=== PATIENT | male | born 1960 | race Caucasian/White ===

== ENCOUNTER → 2018-03-06 | Outpatient (CLI) | payer OTHER, MEDICAID ==
[~2018-03-06] VITALS: Ht 170.2 cm; Wt 108.9 kg
[~2018-03-06] MED LIST: ALLERGY RELIEF10 M5 PO; ASPIR 8181 MG PO; BENAZEPRIL HCL40 MG PO; BREO ELLIPTA 11 EACH INH; DOXYCYCLINE 10100 MG PO; FLEXERIL PO; LIPITOR40 MG PO; NORVASC10 MG PO; OMEGA 3 FISH O1 EACH PO; OMEPRAZOLE20 M2 PO; PREDNISONE 10 M10 MG PO; REQUIP 0.25 M0.25 M1 PO; SPIRONOLACTONE25 M1 PO; TOPROL XL25 MG PO; VENTOLIN HFA 1818 GM INH
[2018-03-06 09:28] VITALS: BP 127/78
[2018-03-06 09:43] LABS: HEMATOCRIT 43.2 % (42.0-52.0); HEMOGLOBIN 14.8 gm/dL (14.0-18.0); MCH 30.3 pg (26.0-34.0); MCHC 34.3 g/dL (28.0-37.0); MCV 88.3 fL (80.0-100.0); MPV 7.6 fl. (7.2-11.1); RBC 4.89 mil/uL (4.50-6.00); RDW-CV 14.9 % (10.5-14.5); WBC 10.3 thou/uL (4.0-11.0)
[2018-03-06 10:02] LABS: APTT 41.9 Seconds (25.0-31.3); INR 1.2; PROTIME 11.8 Seconds (9.20-11.50)
[2018-03-06 10:15] LABS: ANION GAP 3 mmol/L (7-16); BUN 26 mg/dL (7-18); CALCIUM 8.6 mg/dL (8.5-10.1); CHLORIDE 103 mmol/L (98-107); CO2 32 mmol/L (21-32); CREATININE 1.1 mg/dL (0.6-1.3); GLUCOSE 120 mg/dL (70-99); POTASSIUM 4.1 mmol/L (3.5-5.1); SODIUM 138 mmol/L (136-145)
[2018-03-06 10:20] LABS: ALBUMIN 3.9 g/dL (3.4-5.0); ALKALINE PHOSPHATASE 70 U/L (46-116); SGOT 21 U/L (15-37); SGPT 40 U/L (30-65); TOTAL BILIRUBIN 1.4 mg/dL (<0.1-1.0); TOTAL PROTEIN 7.2 g/dL (6.4-8.2)
[2018-03-06 10:22] LABS: SERUM ASSESSMENT Clear
[2018-03-06 10:32] LABS: CHOLESTEROL 97 mg/dL (<200); HDL CHOLESTEROL 26 mg/dL (>40); LDL CHOLESTEROL 48 mg/dL (<100); TC:HDL 3.7 Ratio (Not establshd); TRIGLYCERIDE 115 mg/dL (<150); VLDL 23 mg/dL (<40)
--- NOTE | 2018-03-06 17:29 | EKG ---
[place] [address] ELECTROCARDIOGRAM REPORT Name: JOHANA PETERSEN Room: [facility]#: [id number] Admission: 03/06/18 Attend Phys: Edgar Guerra MD Discharge: Date of : 62 Report #: [id number] THIS REPORT FOR: //name// [facility] Test Date: 2018-03-06 Test Time: 09:39:12 Pat Name: JOHANA PETERSEN Department: Room: Gender: M Senior Computer Specialist: : 1960 Requested By: Edgar Guerra Order Number: [id number] Reading : Red Lino Measurements Intervals [place] Rate: 81 P: 66 WA: 171 QRS: 1 QRSD: 110 T: 63 QT: 420 QTc: 488 Interpretive Statements Sinus rhythm Low voltage, extremity leads Borderline prolonged QT interval No previous ECG available for comparison Electronically Signed On 03-06-2018 17:29:38 CDT by Red Lino [email or web address] <ELECTRONICALLY SIGNED> By: Red Lino MD, [facility] 03/06/18 1729 0939 09 Red Lino MD, FACC /EPI
--- NOTE | 2018-03-07 08:48 | H ---
[place] [address] HISTORY AND PHYSICAL Name: JOHANA PETERSEN Room: [facility]#: [id number] Admission: 03/06/18 Attend Phys: Edgar Guerra MD Discharge: Date of : 62 Report #: [id number] THIS REPORT FOR: //name// CC: Dr. Bryson Guerra INDICATION: Cardiomyopathy, abnormal stress test. HISTORY OF PRESENT ILLNESS: The patient is a very pleasant 57-year-old with a history of cardiomyopathy. Over the past several weeks, he has been having some exertional chest discomfort and dyspnea. Stress testing shows severe LV systolic dysfunction with global hypokinesis. The patient is referred for further evaluation with left heart catheterization and coronary angiography to evaluate for the possibility of underlying coronary artery disease. He does have a calcium score of approximately 460. Cardiac risk factors include hypertension, dyslipidemia, and tobacco use. He is not having any prolonged symptoms. He is without other cardiac complaint. FAMILY HISTORY: The patient's mother had hypertension and heart failure and he believes she of sudden cardiac . He has a sister who at age 58 with sudden cardiac . PAST MEDICAL HISTORY: 1. Cardiomyopathy. 2. COPD. 3. Chronic systolic heart failure. 4. Hypertension. 5. Hyperlipidemia. 6. Chronic tobacco use. 7. Type 2 diabetes mellitus. REVIEW OF SYSTEMS: As per HPI, otherwise unremarkable. PHYSICAL EXAMINATION: VITAL SIGNS: Stable. Blood pressure was 128/62, heart rate 72 and regular. GENERAL: This is a pleasant gentleman who is in no distress. HEENT: The patient is wearing glasses. Extraocular muscles intact. Mucous membranes are moist. NECK: Shows no jugular venous distention. There are no carotid bruits. CHEST: Reveals clear lung diehl without wheezes or rales. CARDIAC: Reveals a regular rhythm without gallop or murmur. ABDOMEN: Reveals normal bowel sounds. The abdomen is soft, nontender. EXTREMITIES: Shows no edema. Peripheral pulses are 2+ and easily palpable. SKIN: [place] [address] HISTORY AND PHYSICAL Name: JOHANA PETERSEN Room: [facility]#: [id number] Admission: 03/06/18 Attend Phys: Edgar Guerra MD Discharge: Date of : 62 Report #: [id number] LABORATORY DATA: A 12-lead EKG shows sinus rhythm without acute ST or T-wave abnormality. IMPRESSION AND RECOMMENDATIONS: 1. Cardiomyopathy. Stress testing suggests severe LV systolic dysfunction. The patient is having symptoms to suggest possible angina. Proceeding with a coronary catheterization for further evaluation. Continue current beta seema and RAINA inhibitor. 2. Hypertension, adequately controlled on current cardiac regimen. 3. Type 2 diabetes mellitus per primary physician. 4. Hyperlipidemia. Continue current statin agent. 5. Chronic tobacco use, smoking cessation advised. <ELECTRONICALLY SIGNED> By: Edgar Guerra MD, FACC 03/07/18 0848 1352 1419Michael Erik Guerra MD, FAC /nt
--- NOTE | 2018-03-07 16:12 | NUR ---
Spoke with the patient by phone, states his right wrist cath puncture site is healing well. Knows not to take his metformin for 48 hours. Is out of his lasix and will not have any money until tomorrow, will fill it tomorrow. No new C/O. No questions or concerns at this time.
--- NOTE | 2018-03-07 18:07 | CARD ---
[address] [address] CARDIAC CATH REPORT Name: JOHANA PETERSEN [id number] Admission: 03/06/18 Attend Phys: Edgar Guerra MD Discharge: Date of : 62 Report #: [id number] THIS REPORT FOR: //name// APPROVED REPORT Study performed: 03/06/2018 10:09:47 Patient Details Patient Status: Out-Patient Room #: The patient is a 57 year-old male Event Personnel Edgar Guerra Air Duct Mechanic, Katerine Lechuga RN Hvac Service Technician, Fozia Arredondo RN Monitor, Bambi Hillman RTR Scrub, Hernan Jin ARRT (R) Scrub Procedures Performed Art Access - R radial artery Left Heart Cath w/or w/o Coronaries [id number] [facility] Hemostasis with Hemoband Indication Cardiomyopathy Risk Factors Cerebrovascular Disease Previous Procedures/Diagnoses Previous CHF Admission/Lab Medications/Medications given during procedure Heparin IV 5000 units Procedure Narrative The patient was brought electively to the Cardiac Catheterization Laboratory and was prepped and draped in a sterile manner. The right wrist was infiltrated with 1% Lidocaine subcutaneous anesthesia. A Slender Glidesheath sheath was inserted into the . Coronary angiography was performed using coronary diagnostic catheters. The right coronary system was accessed and visualized with a Coggon 4.0 5fr catheter. The left coronary system was accessed and visualized with a Coggon 4.0 5fr catheter. The left ventricle was accessed and visualized with a Angled Pig 5fr catheter. Left ventriculogram was performed in STUART projection. Closure device was deployed with a 6 Fr Vasc-Band Lng 27cm. The patient tolerated the procedure well and there were no complications [place] [address] CARDIAC CATH REPORT Name: JOHANA PETERSEN Room: [facility]#: [id number] Admission: 03/06/18 Attend Phys: Edgar Guerra MD Discharge: Date of : 62 Report #: [id number] Intraoperative Conscious Sedation Fentanyl 50 mcg Dose: 1400 mGy Contrast Type and Amount: Omnipaque 40 ml Coronary Angiography The patient's coronary anatomy is right dominant. Diagnostic Cath Left Main Normal LAD 10% plaquing in the midportion Diagonal 1 Normal Diagonal 2 Normal Diagonal 3 Normal Circumflex Small in caliber and normal OM1 High takeoff 10% plaque proximally. Right Coronary Large dominant vessel with 10% plaquing in its proximal and midportion. R PDA Normal RPLV Large branched vessel with 60% mid vessel stenosis. Left Ventriculography The left ventricle is moderately dilated in size with severely decreased contractility. The left ventricular ejection fraction is estimated to be 20-25%. There is global left ventricular hypokinesis. Hemodynamics The aortic pressure is 94/60 mmHg with a mean of 74 mmHg. The left ventricular pressure is 98/14 mmHg with a mean of mmHg. The left ventricular end diastolic pressure is 22 mmHg. Conclusion 1. Moderate nonocclusive disease involving a large posterior lateral LV branch of the right coronary artery. 2. Nonocclusive minimal plaquing of the LAD and circumflex systems. 3. Severe LV systolic dysfunction with a moderately dilated left ventricle. 4. Findings consistent with nonischemic/dilated [place] [address] CARDIAC CATH REPORT Name: JOHANA PETERSEN Room: [facility]#: [id number] Admission: 03/06/18 Attend Phys: Edgar Guerra MD Discharge: Date of : 62 Report #: [id number] 1. Continue aggressive risk factor modification and medical management. <ELECTRONICALLY SIGNED> By: Edgar Guerra MD, FACC 03/07/181806 06 06Michaejaylin Guerra MD, FACC /INF
== END | disposition home or self-care (01) ==
LOC: M.CL 09:20
PROVIDERS: Internal Medicine Cardiovascular Disease
DX: I42.9 Cardiomyopathy, unspecified (principal); F17.210 Nicotine dependence, cigarettes, uncomplicated; J44.9 Chronic obstructive pulmonary disease, unspecified; I11.0 Hypertensive heart disease with heart failure; I50.22 Chronic systolic (congestive) heart failure; E78.5 Hyperlipidemia, unspecified; E11.9 Type 2 diabetes mellitus without complications; Z79.899 Other long term (current) drug therapy; Z79.82 Long term (current) use of aspirin; Z82.49 Family history of ischemic heart disease and other diseases of the circulatory system; Z98.890 Other specified postprocedural states

== ENCOUNTER → 2018-05-15 | Outpatient (CLI) | payer OTHER, MEDICAID ==
[~2018-05-15] VITALS: Ht 170.2 cm; Wt 108.0 kg
[~2018-05-15] MED LIST changes: +GLUCOPHAGE XR500 MG PO; +ISOSORBIDE DINI30 MG PO; +LOTENSIN40 MG PO
[2018-05-15 09:48] LABS: HEMATOCRIT 44.3 % (42.0-52.0); HEMOGLOBIN 15.5 gm/dL (14.0-18.0); MCH 30.8 pg (26.0-34.0); MCV 88.1 fL (80.0-100.0); MPV 7.8 fl. (7.2-11.1); RBC 5.03 mil/uL (4.50-6.00); RDW-CV 14.6 % (10.5-14.5)
[2018-05-15 09:53] VITALS: BP 119/68
[2018-05-15 09:56] LABS: CALCIUM 9.2 mg/dL (8.5-10.1); POTASSIUM 3.9 mmol/L (3.5-5.1)
[2018-05-15 09:58] LABS: INR 1.2; PROTIME 12.2 Seconds (9.20-11.50)
[2018-05-15 10:01] LABS: ALBUMIN 4.1 g/dL (3.4-5.0); TOTAL BILIRUBIN 1.6 mg/dL (<0.1-1.0); TOTAL PROTEIN 7.2 g/dL (6.4-8.2)
[2018-05-15 12:00] VITALS: BP 137/81
[2018-05-15 12:25] VITALS: BP 129/78
--- NOTE | 2018-05-15 13:43 | 2DMMODE ---
[place] [address] 2 D/M-MODE ECHOCARDIOGRAM Name: JOHANA PETERSEN Room: [facility]#: [id number] Admission: 05/15/18 Attend Phys: Edgar Guerra, Discharge: Date of : 62 Date of Service: 05/15/18 1343 Report #: [id number] THIS REPORT FOR: //name// APPROVED REPORT Study performed: 05/15/2018 12:29:36 EXAM: Comprehensive 2D, Doppler, and color-flow Echocardiogram Patient Location: Out-Patient Status: routine BSA: 2.19 Other Information Study Quality: Fair Indications Cardiomyopathy ICD 2D Dimensions IVSd: 11.89 (7-11mm) LVOT Diam: 20.54 (18-24mm) LVDd: 67.35 mm PWd: 11.88 (7-11mm) Ascending Ao: 31.67 (22-36mm) LVDs: 50.08 (25-40mm) Aortic Root: 32.92 mm Volumes Left Atrial Volume (Systole) LA ESV Index: 17.20 mL/m2 Aortic Valve AoV Peak Tyler.: 1.43 m/s AO Peak Gr.: 8.18 mmHg LVOT Max P.14 mmHg AO Mean Gr.: 4.79 mmHg LVOT Mean P.10 mmHg LVOT Max V: 1.02 m/s AO V2 VTI: 20.33 cm LVOT Mean V: 0.68 m/s MARY (VTI): 2.47 cm2 LVOT V1 VTI: 15.14 cm Mitral Valve E/A Ratio: 0.63 MV Decel. Time: 176.12 ms MV E Max Tyler.: 0.46 m/s MV PHT: 51.07 [place] [address] 2 D/M-MODE ECHOCARDIOGRAM Name: JOHANA PETERSEN Room: [facility]#: [id number] Admission: 05/15/18 Attend Phys: Edgar Guerra, Discharge: Date of : 62 Date of Service: 05/15/18 1343 Report #: [id number] MVA (PHT): 4.31 cm2 TDI E/Lateral E': 4.60 E/Medial E': 7.67 Medial E' Tyler.: 0.06 m/s Lateral E' Tyler.: 0.10 m/s Pulmonary Valve PV Peak Tyler.: 0.90 m/s PV Peak Gr.: 3.23 mmHg Left Ventricle Left ventricle is mildly dilated. Mild concentric left ventricular hypertrophy. Left ventricular systolic function is severely decreased. LVEF is 25-30%. Transmitral Doppler flow pattern suggests impaired LV relaxation. Right Ventricle The right ventricle is normal size. The right ventricular systolic function is normal. Device lead is present in the right ventricle. Atria The left atrium size is normal. The right atrium size is normal. Aortic Valve The aortic valve is normal in structure. Mild aortic regurgitation. There is no aortic valvular stenosis. Mitral Valve The mitral valve is normal in structure. Mild mitral regurgitation. No evidence of mitral valve stenosis. Tricuspid Valve The tricuspid valve is normal in structure. There is no tricuspid valve regurgitation noted. Pulmonic Valve The pulmonary valve is normal in structure. There is no pulmonic valvular regurgitation. Great Vessels The aortic root is normal in size. IVC is normal in size and collapses >50% with inspiration. IVC is not well visualized[place] [address] 2 D/M-MODE ECHOCARDIOGRAM Name: JOHANA PETERSEN Room: [facility]#: [id number] Admission: 05/15/18 Attend Phys: Edgar Guerra, Discharge: Date of : 62 Date of Service: 05/15/18 1343 Report #: [id number] There is no pericardial effusion. <Conclusion> Left ventricle is mildly dilated. Mild concentric left ventricular hypertrophy. Left ventricular systolic function is severely decreased. LVEF is 25-30%. Transmitral Doppler flow pattern suggests impaired LV relaxation. Device lead is present in the right ventricle. Mild aortic regurgitation. Mild mitral regurgitation. <ELECTRONICALLY SIGNED> By: Edgar Guerra MD, FACC 05/15/18 1343 1343 1343 Edgar Guerra MD, FACC /INF
--- NOTE | 2018-05-15 17:36 | H ---
[place] [address] HISTORY AND PHYSICAL Name: JOHANA PETERSEN Room: [facility]#: [id number] Admission: 05/15/18 Attend Phys: Edgar Guerra MD Discharge: Date of : 62 Report #: [id number] THIS REPORT FOR: //name// CC: FERMIN Guerra INDICATION: The patient is being admitted for elective ICD placement. HISTORY OF PRESENT ILLNESS: The patient is a very pleasant 57-year-old gentleman with history of nonischemic cardiomyopathy. Recent catheterization showed nonocclusive coronary artery disease. He has been medically managed for his cardiomyopathy, but continues to have severe left ventricular systolic dysfunction. EF is 30%-35% by noninvasive and invasive studies. PET scan last year was nonischemic. He has dyspnea on exertion and class 2 symptoms. Presently, he is euvolemic. PAST MEDICAL HISTORY: 1. Nonischemic cardiomyopathy. 2. Nonocclusive coronary artery disease. 3. Type 2 diabetes mellitus. 4. Tobacco use. 5. Essential hypertension. 6. COPD. 7. Hyperlipidemia. ALLERGIES: TAPE and NICOTINE PATCHES. CURRENT MEDICATIONS: Amlodipine 10 mg daily, aspirin 81 mg daily, benazepril 40 mg daily, Flexeril 10 mg daily, metoprolol ER 50 mg daily, fish oil 1000 mg daily, spironolactone 25 mg daily, ropinirole 0.25 mg nightly, omeprazole 20 mg daily, Proventil inhaler 2 puffs q.i.d., Zyrtec 10 mg daily, furosemide 20 mg daily, Glucophage 500 mg b.i.d., atorvastatin 40 mg at bedtime, Imdur 30 mg daily. SOCIAL HISTORY: The patient is . He lives with his girlfriend. He is on disability. He smokes half pack to a pack of cigarettes daily. He does not drink alcohol. FAMILY HISTORY: The patient's mother had heart failure and with sudden cardiac . The patient has a sister who of sudden cardiac at age 59. PAST SURGICAL HISTORY: Cholecystectomy, appendectomy, hernia repair. REVIEW OF SYSTEMS: A 14-point review of systems is otherwise [place] [address] HISTORY AND PHYSICAL Name: JOHANA PETERSEN Room: [facility]#: [id number] Admission: 05/15/18 Attend Phys: Edgar Guerra MD Discharge: Date of : 62 Report #: [id number] PHYSICAL EXAMINATION: VITAL SIGNS: Stable. Blood pressure 139/80, pulse 83 and regular. GENERAL: This is a pleasant gentleman in no distress. Mood and affect appropriate. HEENT: The patient is wearing glasses. Extraocular muscles intact. Mucous membranes moist. NECK: Shows no jugular venous distention. There are no carotid bruits. CHEST: Reveals clear lung diehl. I do not appreciate wheezes or rales. CARDIOVASCULAR: Reveals a regular rhythm with normal S1 and S2. I do not appreciate gallop or murmur. ABDOMEN: Reveals normal bowel sounds. The abdomen is soft, nontender. EXTREMITIES: Shows no edema. Peripheral pulses 2+ and easily palpable. SKIN: Warm and dry. IMPRESSION AND RECOMMENDATIONS: 1. Nonischemic cardiomyopathy. The patient is on appropriate medications as outlined above. He is being brought in for elective implantable cardioverter defibrillator placement for primary prevention. 2. Coronary artery disease as outlined above. This is presently stable. He is not having any symptoms to suggest angina. 3. Cardiomyopathy. The patient is on appropriate medications, including Toprol-XL and benazepril, as well as isosorbide, and spironolactone. 4. Tobacco use, cessation discussed and advised. 5. Hypertension, adequately controlled on current cardiac regimen. 6. Hyperlipidemia. Continue atorvastatin at current dose. <ELECTRONICALLY SIGNED> By: Edgar Guerra MD, FACC 05/15/18 1736 1009 1037[facility] Gu[facility] MD, FACC /nt
--- NOTE | 2018-05-30 15:21 | CARD ---
[address] [address] CARDIAC CATH REPORT Name: NICOLAJOHANA Millan Room: [facility] Laureano#: [id number] Admission: 05/15/18 Attend Phys: Edgar Guerra MD Discharge: Date of : 62 Report #: [id number] THIS REPORT FOR: //name// APPROVED REPORT Study performed: 05/15/2018 10:11:02 Patient Status: Out-Patient Room #: Exam: insertion of a single-chamber ICD. Indications: primary prevention The patient is a 57 year-old male with a history of nonischemic cardiomyopathy. Patient Info Last EF%: 35% Date: NYHA Heart Class: II Implanted Devices: Biotronik Intica 7 DRT DX DF1 pro-MRI, model #395559, serial #[id number] single-chamber pacing ICD generator. Biotronik Plexa pro-MRI DF1S DX 65/15, model #918318, serial #[id number] single lead ICD lead. Procedure After informed consent was obtained the area of the left chest was prepped and draped in sterile fashion. Local anesthesia was achieved with 1% lidocaine. Next after an initial incision was made a device pocket was formed over the left pectoralis muscle using electrocautery and blunt dissection. Next using a micropuncture kit the left subclavian vein was accessed and ultimately a safety J guidewire advanced to the area of the right atrium under fluoroscopic guidance. Next a 7 Micronesian tear-away introducer was advanced over the guidewire. The dilator and guidewire were removed as the ICD lead was advanced to a secure position within the right ventricular apex. The lead was actively fixed. Thresholds were checked and deemed to be satisfactory. There was no diaphragmatic stimulation with maximum output pacing. The lead was then secured within the device pocket using the designated cuff and interrupted stitches of 0 silk suture. The device pocket was then flushed with antibiotic solution. Next a single chamber pacing ICD generator was attached to the lead. The generator and redundant lead were then placed within the device pocket. The deep tissues were closed using interrupted stitches of 2-0 Vicryl. The skin incision was then closed with a single date of or 0 Vicryl. Several Steri-Strips were placed [place] [address] CARDIAC CATH REPORT Name: JOHANA PETERSEN Room: [facility]#: [id number] Admission: 05/15/18 Attend Phys: Edgar Guerra MD Discharge: Date of : 62 Report #: [id number] sterile Telfa dressing was then covered with a Tegaderm. The patient tolerated well without complication. Findings The sensed R-wave was 24.20 mV. The sensed P wave was 4.40 mV. The ventricular lead pacing threshold was 0.4 V at 0.40 ms. Ventricular lead pacing impedance was 754 ohms. The VF detection rate was 240 bpm. The VT1 detection rate was 150 bpm. The VT 2 detection rate was 182 bpm. VF therapies were for anti-tach pacing times one followed by 40 J shock times a day. VT 1 therapies were monitor only. VT 2 therapies were anicteric pacing 6 followed by 40 J shock 8. Conclusion 1. Nonischemic cardiomyopathy. 2. Successful placement of a single-chamber ICD. Recommendations 1. Follow-up site check in one week. 2. Follow-up ICD interrogation in one to 2 months. <ELECTRONICALLY SIGNED> By: Edgar Guerra MD, FACC 05/30/18 1521 1521 1521Michaejaylin Guerra MD, FACC /INF
== END | disposition home or self-care (01) ==
LOC: M.CL 09:17
PROVIDERS: Internal Medicine Cardiovascular Disease
DX: Z45.02 Encounter for adjustment and management of automatic implantable cardiac defibrillator (principal); I42.9 Cardiomyopathy, unspecified; I08.0 Rheumatic disorders of both mitral and aortic valves; I11.0 Hypertensive heart disease with heart failure; I50.1 Left ventricular failure, unspecified; I25.10 Atherosclerotic heart disease of native coronary artery without angina pectoris; E11.9 Type 2 diabetes mellitus without complications; J44.9 Chronic obstructive pulmonary disease, unspecified; F17.210 Nicotine dependence, cigarettes, uncomplicated; E78.5 Hyperlipidemia, unspecified; Z88.8 Allergy status to other drugs, medicaments and biological substances; Z79.899 Other long term (current) drug therapy; Z90.49 Acquired absence of other specified parts of digestive tract; Z98.890 Other specified postprocedural states; Z82.49 Family history of ischemic heart disease and other diseases of the circulatory system; Z79.01 Long term (current) use of anticoagulants; Z79.82 Long term (current) use of aspirin

== ENCOUNTER → 2019-12-03 | Outpatient (CLI) | payer OTHER, MEDICAID | LOC: M.LAB 15:20 | PROVIDERS: ATTEND Nurse Practitioner | DX: I47.2 Ventricular tachycardia (principal); Z79.899 Other long term (current) drug therapy ==

== ENCOUNTER → 2019-12-27 | Outpatient (CLI) | payer OTHER, MEDICAID ==
[2019-12-27 16:03] LABS: ALBUMIN 3.9 g/dL (3.4-5.0); CALCIUM 8.8 mg/dL (8.5-10.1); CREATININE 1.2 mg/dL (0.6-1.3); POTASSIUM 4.4 mmol/L (3.5-5.1); TOTAL BILIRUBIN 1.3 mg/dL (<0.1-1.0); TOTAL PROTEIN 7.2 g/dL (6.4-8.2)
== END ==
LOC: M.LAB 15:27
PROVIDERS: ATTEND Nurse Practitioner
DX: I42.0 Dilated cardiomyopathy (principal)

== ENCOUNTER → 2020-01-13 | Outpatient (CLI) | payer OTHER, MEDICAID ==
--- NOTE | 2020-01-13 15:01 | 2DMMODE ---
[place] [address] 2 D/M-MODE ECHOCARDIOGRAM Name: JOHANA PETERSEN Room: [facility]#: [id number] Admission: 01/13/20 Attend Phys: Catia Rios, Discharge: Date of : 62 Date of Service: 01/13/20 1501 Report #: [id number] THIS REPORT FOR: cc: FERMIN CAO DEBORAH ANN Blick,Red Paulson MD [facility] ~ APPROVED REPORT Study performed: 01/13/2020 13:36:41 EXAM: Comprehensive 2D, Doppler, and color-flow Echocardiogram Patient Location: Out-Patient BSA: 2.16 HR: 75 bpm BP: 122/72 mmHg Other Information Study Quality: Good Indications Cardiomyopathy 2D Dimensions IVSd: 12.23 (7-11mm) LVOT Diam: 20.59 (18-24mm) LVDd: 47.78 mm PWd: 9.92 (7-11mm) Ascending Ao: 34.60 (22-36mm) LVDs: 27.32 (25-40mm) Aortic Root: 34.05 mm Volumes Left Atrial Volume (Systole) LA ESV Index: 14.20 mL/m2 Aortic Valve AoV Peak Tyler.: 1.44 m/s AO Peak Gr.: 8.32 mmHg LVOT Max P.13 mmHg AO Mean Gr.: 4.97 mmHg LVOT Mean P.58 mmHg LVOT Max V: 0.88 m/s AO V2 VTI: 23.52 cm LVOT Mean V: 0.59 m/s MARY (VTI): 1.96 cm2 LVOT V1 VTI: 13.85 cm Mitral Valve E/A Ratio: 0.72 [place] [address] 2 D/M-MODE ECHOCARDIOGRAM Name: JOHANA PETERSEN Room: [facility]#: [id number] Admission: 01/13/20 Attend Phys: Catia Rios, Discharge: Date of : 62 Date of Service: 01/13/20 1501 Report #: [id number] MV Decel. Time: 269.35 ms MV E Max Tyler.: 0.44 m/s MV PHT: 78.11 ms MVA (PHT): 2.82 cm2 TDI E/Lateral E': 5.50 E/Medial E': 11.00 Medial E' Tyler.: 0.04 m/s Lateral E' Tyler.: 0.08 m/s Pulmonary Valve PV Peak Tyler.: 1.18 m/s PV Peak Gr.: 5.56 mmHg Left Ventricle The left ventricle is normal size. There is normal LV segmental wall motion. There is normal left ventricular wall thickness. Left ventricular systolic function is normal. The left ventricular ejection fraction is within the normal range. LVEF is 50-55%. Grade I - abnormal relaxation pattern. Right Ventricle The right ventricle is normal size. The right ventricular systolic function is normal. Pacemaker lead is present in the right ventricle. Atria The left atrium size is normal. Pacemaker lead is present in the right atrium. Aortic Valve Aortic valve is mildly calcified. No aortic regurgitation is present. There is no aortic valvular stenosis. Mitral Valve The mitral valve is normal in structure. There is trace mitral valve regurgitation noted. No evidence of mitral valve stenosis. Tricuspid Valve The tricuspid valve is normal in structure. There is no tricuspid valve regurgitation noted. Pulmonic Valve The pulmonary valve is normal in structure. There is no pulmonic valvular regurgitation. Great Vessels The aortic root is normal in size. IVC [place] [address] 2 D/M-MODE ECHOCARDIOGRAM Name: JOHANA PETERSEN Room: [facility]#: [id number] Admission: 01/13/20 Attend Phys: Catia Rios, Discharge: Date of : 62 Date of Service: 01/13/20 1501 Report #: [id number] collapses >50% with inspiration. Pericardium There is no pericardial effusion. <Conclusion> LVEF is 50-55%. Aortic valve is mildly calcified. <ELECTRONICALLY SIGNED> By: Red Lino MD, FACC 01/13/20 1501 1501 1501 Red Lino MD, FAC /INF
== END ==
LOC: M.CRD 13:10
PROVIDERS: ATTEND Nurse Practitioner
DX: I35.8 Other nonrheumatic aortic valve disorders (principal); I42.0 Dilated cardiomyopathy